=== PATIENT | female | born 1945 | race African-American/Black ===

== ENCOUNTER 2016-12-28 17:07 | Emergency (ER) | payer OTHER ==
[2016-12-28 17:22] VITALS: TEMP 98; BMI 31.2
--- NOTE | 2016-12-28 19:25 | PDOC ---
History of Present Illness - General History Source: Patient Exam Limitations: No Limitations - History of Present Illness Initial Comments: 12/28/16 21:44 The patient is a 70 year old female with a significant past medical history of FEM POP bypass surgery right leg one year ago, diabetes, hyperlipidemia, hypertension, and sleep apnea presenting to the Emergency Department with intermittent left knee pain. She reports that she stood up from a seated position last night when she felt a pain in her left knee. She reports that the pain is now intermittent, but that the pain is an 8/10 at its worst. She reports that she is participating in PT for her knees and lower back pain. She states that she ambulates well. She also reports nerve pain in her right leg secondary to the FEM POP bypass. The patient denies nausea, vomiting, and diarrhea. Patient denies fever, chills , and cough. Patient denies palpitations, chest pain, shortness of breath, and diaphoresis. Patient denies back pain, or neck pain. Surgical Hx: FEM POP bypass right leg one year ago <Jacque Bai - Last Filed: 12/28/16 21:44> <Dora Harper - Last Filed: 12/29/16 01:26> - General Chief Complaint: Pain, Acute Stated Complaint: L LEG PAIN Time Seen by Provider: 12/28/16 19:25 Past History <Jacque Bai - Last Filed: 12/28/16 21:44> - Past Medical History Cardiac Disorders: Yes (ANGINA) GI Disorders: Yes (gerd) Disorders: Yes (incontinence) HTN: Yes Hypercholesterolemia: Yes Thyroid Disease: (thyroid biopsies) Other medical history: rle dvt PVD - Surgical History Abdominal Surgery: Yes (tubal ligation, prolapse uterus sugery x2) - Immunization History Immunization Up to Date: Yes - Psycho/Social/Smoking Cessation Hx Anxiety: No Suicidal Ideation: No Smoking History: Former smoker Have you smoked in the past 12 months: No Information on smoking cessation initiated: No Hx Alcohol Use: No Drug/Substance Use Hx: No Substance Use Type: None <Dora Harper - Last Filed: 12/29/16 01:26> - Past Medical History Allergies/Adverse Reactions: Allergies Allergy/AdvReac Type Severity Reaction Status Date / Time Penicillins Allergy Unknown Verified 12/28/16 17:35 Home Medications: Ambulatory Orders Amlodipine Besylate [Norvasc -] 10 mg PO DAILY 02/01/14 Aspirin [ASA -] 81 mg PO DAILY 02/01/14 Metoprolol Succinate [Toprol XL -] 50 mg PO BID 02/01/14 Oxybutynin Chloride [Ditropan Xl] 10 mg PO DAILY 02/01/14 Atorvastatin Ca [Lipitor] 40 mg PO HS 07/03/15 Ranitidine [Zantac -] 150 mg PO BID 07/03/15 Review of Systems - Review of Systems Able to Perform ROS?: Yes Comments:: 12/28/16 21:45 GENERAL/CONSTITUTIONAL: No fever or chills. No weakness. HEAD, EYES, EARS, NOSE AND THROAT: No change in vision. No ear pain or discharge. No sore throat. CARDIOVASCULAR: No chest pain or shortness of breath. RESPIRATORY: No cough, wheezing, or hemoptysis. GASTROINTESTINAL: No nausea, vomiting, diarrhea or constipation. GENITOURINARY: No dysuria, frequency, or change in urination. MUSCULOSKELETAL: + left knee pain. No joint or muscle swelling or pain. No neck or back pain. SKIN: No rash NEUROLOGIC: No headache, vertigo, loss of consciousness, or change in strength/ sensation. ENDOCRINE: No increased thirst. No abnormal weight change. HEMATOLOGIC/LYMPHATIC: No anemia, easy bleeding, or history of blood clots. ALLERGIC/IMMUNOLOGIC: No hives or skin allergy. <Jacque Bai - Last Filed: 12/28/16 21:44> *Physical Exam - Vital Signs Last Vital Signs Temp Pulse Resp BP Pulse Ox 98 F 72 18 141/71 96 12/28/16 17:18 12/28/16 20:48 12/28/16 20:48 12/28/16 20:48 12/28/16 20:48 - Physical Exam Comments: 12/28/16 21:45 GENERAL: Awake, alert, and fully oriented, in no acute distress HEAD: No signs of trauma EYES: PERRLA, EOMI, sclera anicteric, conjunctiva clear ENT: Auricles normal inspection, hearing grossly normal, nares patent, oropharynx clear without exudates. Moist mucosa NECK: Normal ROM, supple, no lymphadenopathy, JVD, or masses LUNGS: Breath sounds equal, clear to auscultation bilaterally. No wheezes, and no crackles HEART: Regular rate and rhythm, normal S1 and S2, no murmurs, rubs or gallops ABDOMEN: Soft, nontender, normoactive bowel sounds. No guarding, no rebound. No masses EXTREMITIES: 1+ pitting edema bilaterally. Normal range of motion. No clubbing or cyanosis. No cords, erythema, or tenderness NEUROLOGICAL: Cranial nerves II through XII grossly intact. Normal speech, normal gait SKIN: Warm, Dry, normal turgor, no rashes or lesions noted. <Jacque Bai - Last Filed: 12/28/16 21:44> - Vital Signs Last Vital Signs Temp Pulse Resp BP Pulse Ox 98 F 66 20 129/68 97 12/28/16 17:18 12/28/16 17:18 12/28/16 17:18 12/28/16 17:18 12/28/16 17:18 <Dora Harper - Last Filed: 12/29/16 01:26> ED Treatment Course - RADIOLOGY Radiology Studies Ordered: 12/28/16 21:36 Left Leg US As read by Dr. Maximino Lane IMPRESSION: No evidence of deep venous thrombosis. <Jacque Bai - Last Filed: 12/28/16 21:44> Medical Decision Making - Medical Decision Making 12/29/16 01:24 Pt comes with left leg pain particularly in the popliteal area. She is worried that she may have a DVT; she has a hx of Fem-Pop bypass in the right leg. Pt has no DVT, on sono study today. The pain began earlier today when she stood up from a seated position. Pt is active and works out and goes to physical rehab. She states that she was biking 2 days ago on the stationary bikes. She likely strained her leg. D/c home with motrin tylenol as an outpatient. <Dora Harper - Last Filed: 12/29/16 01:26> *DC/Admit/Observation/Transfer - Attestations Scribe Attestion: 12/28/16 21:46 Documentation prepared by Jacque Bai, acting as medical writer for Dora Harper MD. <Jacque Bai - Last Filed: 12/28/16 21:44> - Discharge Dispostion Admit: No <Harper,Dora - Last Filed: 12/29/16 01:26> Diagnosis at time of Disposition: Leg pain, Left knee sprain - Discharge Dispostion Disposition: HOME Condition at time of disposition: Stable - Referrals Referrals: Cole Santiago MD [Primary Care Provider] - - Patient Instructions Printed Discharge Instructions: DI for Knee Sprain
[2016-12-28 20:49] VITALS: BP 141/71; PULSE 72
== END 2016-12-28 22:16 | disposition home or self-care (01) ==
LOC: JER 17:07 → JERFT 17:07 → JER 22:16
DX: S83.92XA Sprain of unspecified site of left knee, initial encounter (principal); X58.XXXA Exposure to other specified factors, initial encounter; Y93.9 Activity, unspecified; Y92.9 Unspecified place or not applicable; K21.9 Gastro-esophageal reflux disease without esophagitis; I10 Essential (primary) hypertension; E78.00 Pure hypercholesterolemia, unspecified; E07.9 Disorder of thyroid, unspecified; Z87.891 Personal history of nicotine dependence; I20.9 Angina pectoris, unspecified; M25.562 Pain in left knee; M79.89 Other specified soft tissue disorders; M79.605 Pain in left leg
CPT/HCPCS: 93971-TC; 99282-25

== ENCOUNTER 2017-03-06 12:44 | Observation (INO) | payer OTHER ==
[2017-03-06 12:50] VITALS: BMI 29.9
[2017-03-06] MEDS ORDERED: ASPIRIN 81 MG CHEWABLE TABLETS PO ONE ×2 (13:09→13:42)
[2017-03-06] MEDS ORDERED: ASPIRIN 81 MG CHEWABLE TABLETS ONE (13:32)
[2017-03-06] MEDS ORDERED: NAPROXEN 500 MG TABLET (FP) ONE (13:32)
[2017-03-06 13:42] LABS: BASOPHIL 0.8 % (0-2.0); EOSINOPHIL 4.2 % (0-4.5); MCH 29.2 pg (25.7-33.7); MCHC 32.4 g/dl (32.0-36.0); MEAN PLT VOLUME 10.2 fl (7.5-11.1); NEUTROPHILS 56.1 % (42.8-82.8); PLATELET COUNT 203 K/MM3 (134-434); RDW 13.2 % (11.6-15.6); WHITE BLOOD COUNT 9.6 K/mm3 (4.0-10.0)
[2017-03-06] MEDS ORDERED: NAPROXEN 500 MG TABLET (FP) PO ONE (13:42)
--- NOTE | 2017-03-06 13:49 | PDOC ---
History of Present Illness - General History Source: Patient Exam Limitations: No Limitations - History of Present Illness Initial Comments: 03/06/17 14:01 The patient is a 71-year-old woman with a significant past medical history of hypertension, hypercholesterolemia, fem-pop bypass, angina, gastroesophageal reflux disease and thyroid disease who presents to the emergency department via walk-in for further evaluation of left shoulder pain. No recent fall, trauma or strenuous activity. As per patient, she reports experiencing a mild muscle strain over her left arm, approximately 3 weeks. She states that since onset her pain, was initially intermittent but over the course if three weeks, her pain has gradually worsen. She describes her pain as a scraping pain that starts on her right arm and radiates to her chest and back with a rated 8/10 in severity that lasts for a few minutes. She notes that lateral movements mildly alleviates her pain. She has been taking Tylenol without significant relief. She presents to the emergency department, as she now feels nauseous. No fever, chills, generalized weakness No lightheadedness, dizziness, palpitations,visual changes, headache, neck pain No cough, shortness of breath, orthopnea. No abdominal pain, vomiting, diarrhea, No urinary complaints. Allergies: Penicillin Past Surgical History: Fem-pop bypass, tubal ligation, prolapse uterus sugery Social History: No tobacco, ETOH and recreational drug use. Primary Care Physician: Dr. Charo West Quarter Lining Smoother: Dr. Shalom Ayoub <Teresa Garcia - Last Filed: 03/06/17 14:35> <Vimal Magdaleno - Last Filed: 03/06/17 14:41> - General Chief Complaint: Chest Pain Stated Complaint: PAIN Time Seen by Provider: 03/06/17 12:59 Past History <Teresa Garcia - Last Filed: 03/06/17 14:35> - Past Medical History Cardiac Disorders: Yes (ANGINA) GI Disorders: Yes (gerd) Disorders: Yes (incontinence) HTN: Yes Hypercholesterolemia: Yes Thyroid Disease: (thyroid biopsies) - Surgical History Abdominal Surgery: Yes (tubal ligation, prolapse uterus sugery x2) - Immunization History Immunization Up to Date: Yes - Psycho/Social/Smoking Cessation Hx Anxiety: No Suicidal Ideation: No Smoking History: Never smoked Have you smoked in the past 12 months: No Information on smoking cessation initiated: No Hx Alcohol Use: No Drug/Substance Use Hx: No Substance Use Type: None <Vimal Magdaleno - Last Filed: 03/06/17 14:41> - Past Medical History Allergies/Adverse Reactions: Allergies Allergy/AdvReac Type Severity Reaction Status Date / Time Penicillins Allergy Unknown Verified 03/06/17 12:50 Home Medications: Ambulatory Orders Amlodipine Besylate [Norvasc -] 10 mg PO DAILY 02/01/14 Aspirin [ASA -] 81 mg PO DAILY 02/01/14 Metoprolol Succinate [Toprol XL -] 50 mg PO BID 02/01/14 Oxybutynin Chloride [Ditropan Xl] 10 mg PO DAILY 02/01/14 Atorvastatin Ca [Lipitor] 40 mg PO HS 07/03/15 Ranitidine [Zantac -] 150 mg PO BID 07/03/15 Metformin HCl [Metformin HCl ER] 1,000 mg PO BID 03/06/17 Pregabalin [Lyrica -] 75 mg PO BID 03/06/17 Review of Systems - Review of Systems Constitutional: No: Chills, Fever Respiratory: No: Cough, Shortness of Breath Cardiac (ROS): Yes: Chest Pain. No: Edema, Lightheadedness, Palpitations, Syncope ABD/GI: No: Nausea, Vomiting Musculoskeletal: Yes: Joint Pain, Muscle Pain Neurological: No: Tingling, Weakness All Other Systems: Reviewed and Negative <Vimal Magdaleno - Last Filed: 03/06/17 14:41> *Physical Exam - Vital Signs Last Vital Signs Temp Pulse Resp BP Pulse Ox 97.7 F 74 18 154/73 96 03/06/17 12:45 03/06/17 12:45 03/06/17 12:45 03/06/17 12:45 03/06/17 12:45 - Physical Exam Comments: 03/06/17 14:01 GENERAL: The patient is awake, alert, and fully oriented, in no acute distress. HEAD: Normal with no signs of trauma. EYES: Pupils equal, round and reactive to light, extraocular movements intact, sclera anicteric, conjunctiva clear with no pallor. ENT: Ears normal, nares patent, oropharynx clear without exudates. Moist mucous membranes. NECK: Normal range of motion, supple without lymphadenopathy, JVD, or masses. LUNGS: Breath sounds equal, clear to auscultation bilaterally. No wheeze/ crackles. HEART: Bradycardic, regular rate and rhythm without murmur or rub. ABDOMEN: Soft/nontender/nondistended. BS wnl. No guarding or rebound. No palpable masses. No hepatosplenomegaly. EXTREMITIES: No joint swelling warmth, joint effusion, deformity. There is some reproducible tenderness over the left trapezius muscle. Neurovascularly intact distally.Normal range of motion, no edema. No clubbing or cyanosis. No cords, erythema, or tenderness. NEUROLOGICAL: Cranial nerves II through XII grossly intact. Normal speech. PSYCH: Normal mood, normal affect. SKIN: Warm, Dry, normal turgor, no rashes or lesions noted. <Teresa Garcia - Last Filed: 03/06/17 14:35> - Vital Signs Last Vital Signs Temp Pulse Resp BP Pulse Ox 97.7 F 74 18 154/73 96 03/06/17 12:45 03/06/17 12:45 03/06/17 12:45 03/06/17 12:45 03/06/17 12:45 <Vimal Magdaleno - Last Filed: 03/06/17 14:41> Heart Score/ECG Review - History History: Slightly suspicious - Electrocardiogram EKG: Normal - Age Age: >/= 65 - Risk Factors Risk Factors Heart Score: Yes Hx Hypertension Based on the list above the patient has:: 1-2 risk factors - Troponin Troponin: </= normal limit - Score Heart Score - Total: 3 #1 ECG reviewed & interpreted by me at: 12:53 General ECG Interpretation: Sinus Rhythm, Normal Rate (67), Normal Intervals, No acute ischemic changes (Q waves in 3 and aVF, no acute ST changes) Compared to previous ECG there are: No significant change (c/w 01/11/16) <Vimal Magdaleno - Last Filed: 03/06/17 14:41> ED Treatment Course - LABORATORY CBC & Chemistry Diagram: 03/06/17 13:09 03/06/17 13:09 - ADDITIONAL ORDERS Additional order review: Laboratory Results 03/06/17 03/06/17 13:09 13:09 Sodium 140 Potassium 4.2 Chloride 101 Lipase 108 03/06/17 13:09 RBC 4.65 D MCV 90.0 MCHC 32.4 RDW 13.2 MPV 10.2 D Neutrophils % 56.1 Lymphocytes % 32.5 D Monocytes % 6.4 Eosinophils % 4.2 Basophils % 0.8 - RADIOLOGY Radiograph Interpretation: 03/06/17 14:04 EXAM: RAD/CHEST PA LAT IMPRESSION: Chest pain. Rule out infiltrate. Chest. 2 views. Comparison study November 27, 2016. No evidence of widening of the superior mediastinum. Uncoiled thoracic aorta. The cardiac silhouette is not enlarged. No evidence of pneumonia , CHF, pleural effusion, or pneumothorax. No bulky hilar adenopathy seen. Intact visualized osseous structures. Degenerative changes are noted in the thoracic spine, upper lumbosacral spine. - Medications Given in the ED: ED Medications Discontinued Medications Generic Name Dose Route Start Last Admin Trade Name Freq PRN Reason Stop Dose Admin Aspirin 162 mg 03/06/17 13:09 03/06/17 13:47 Asa - PO 03/06/17 13:10 Not Given ONCE ONE Aspirin 81 mg 03/06/17 13:42 03/06/17 13:47 Asa - PO 03/06/17 13:43 81 mg ONCE ONE Administration Naproxen 500 mg 03/06/17 13:42 03/06/17 13:47 Naprosyn - PO 03/06/17 13:43 500 mg ONCE ONE Administration <Teresa Garcia - Last Filed: 03/06/17 14:35> - LABORATORY CBC & Chemistry Diagram: 03/06/17 13:09 03/06/17 13:09 - RADIOLOGY Radiology Studies Ordered: Category Date Time Status CHEST PA & LAT [RAD] Stat Radiology 03/06/17 13:09 Ordered <Vimal Magdaleno - Last Filed: 03/06/17 14:41> Medical Decision Making - Medical Decision Making 03/06/17 14:[address] Brannon. 03/06/17 14:[address] West. Immediate response. Case was discussed. <Teresa Garcia - Last Filed: 03/06/17 14:35> - Medical Decision Making 03/06/17 13:51 A portion of this note was documented by scribe services under my direction. I have reviewed the details of the note, within reason, and agree with the documentation with the following case summary and management plan written by me. 71-year-old female with history of hypertension presents with 3 weeks of intermittent left arm pain, very positional in nature and relieved slightly with Tylenol, not exertional but over the last few days has radiated up to her shoulder and left upper chest, so she presents for evaluation. No cough or shortness of breath, no orthopnea, has unlimited exercise tolerance at baseline. Reports stress test in 1998, never had catheterization her stents. No respiratory complaints. Vital signs normal. Well-appearing. Cardiopulmonary exam is normal. Reproducible discomfort to the left shoulder/trapezius, neurovascular intact otherwise without joint pathology 71-year-old female with a presentation most consistent with musculoskeletal discomfort in the left arm, question arthralgia versus pinched nerve. Clearly, given the age and risk factors and radiation to left chest, ACS is on the differential. Atypical overall, heart score of 3, EKG without acute changes. 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 03/06/17 14:40 Labs are within normal limits, troponin negative. Chest x-ray without acute pathology. Still with some left arm pain, no chest pain. Case discussed with Dr. Iyer, covering Dr. Ayoub, who agrees that given the history of vascular disease Will place in observation for likely stress test. Patient agrees, accepted for observation telemetry by Dr. Masterson. <Vimal Magdaleno - Last Filed: 03/06/17 14:41> *DC/Admit/Observation/Transfer - Attestations Scribe Attestion: 03/06/17 14:02 Documentation prepared by Teresa Garcia, acting as medical secretary receptionist for Vimal Magdaleno MD. <Teresa Garcia - Last Filed: 03/06/17 14:35> - Discharge Dispostion Admit: Yes <Vimal Magdaleno - Last Filed: 03/06/17 14:41> Diagnosis at time of Disposition: Left arm pain, Atypical chest pain - Discharge Dispostion Condition at time of disposition: Stable - Referrals Referrals: Charo West MD [Primary Care Provider] -
[2017-03-06 14:02] LABS: ANION GAP 11 (8-16); BILIRUBIN,TOTAL 0.4 mg/dL (0.2-1.0); CALCIUM 9.5 mg/dL (8.5-10.1); CO2 28 mmol/L (21-32); COCKROFT - GAULT 92.2505; CREATININE 0.7 mg/dL (0.55-1.02); GLUCOSE,RANDOM 163 mg/dL (74-106); MAGNESIUM 2.2 mg/dL (1.8-2.4); SGOT/AST 14 U/L (15-37); SGPT/ALT 25 U/L (12-78); TOT PROT 8.1 g/dl (6.4-8.2)
[2017-03-06 14:04] LABS: ALK PHOS 113 U/L (45-117); TROPONIN I < 0.02 ng/ml (0.00-0.05)
[2017-03-06 14:25] LABS: INR 1.01 (0.82-1.09); PROTHROMBIN TIME (PATIENT) 11.1 SEC (9.98-11.88)
[2017-03-06 15:28] LABS: URINE APPEARANCE CLEAR; URINE BILIRUBIN NEGATIVE (NEGATIVE); URINE BLOOD NEGATIVE (NEGATIVE); URINE COLOR LTYELLOW; URINE GLUCOSE (UA) NEGATIVE (NEGATIVE); URINE KETONE NEGATIVE (NEGATIVE); URINE NITRITE NEGATIVE (NEGATIVE); URINE PROTEIN NEGATIVE (NEGATIVE); URINE UROBILINOGEN NEGATIVE E.U./dl (0.2-1.0)
[2017-03-06 15:36] LABS: URINE LEUK ESTERASE 2+ (NEGATIVE)
[2017-03-06 16:03] LABS: URINE MUCUS RARE; URINE WBC 4 /hpf (3-5)
[2017-03-06] MEDS: ACETAMINOPHEN 500 MG TABLET (FP) PO PRN (16:38)
[2017-03-06] MEDS: INSULIN SLIDING SCALE (NOVOLOG) 1 VIAL SQ SCH (17:36)
--- NOTE | 2017-03-06 18:57 | CON.CARD ---
Cardiology Consult (text) - Consultation Consultation Note: CC: CP 71 yo with h/o HTN, HPL, PAD, NIDDM who p/w left arm pain radiating to chest. states for the past few weeks has had increasing frequency of left arm pain/ numbness radiating to chest back and up left side of neck. does not seem to be worsened by exertion although patient overall sedentary. Pain is paroxysmal - comes and goes throughout day. Not worsened by position, movement or deep breathing. severe enough to interfere with sleep today also with associated nausea. no diaphoresis, vomiting, diarrhea, f/c/s, headache, rashes, visual disturbances, muscle weakness. func status: can walk up a flight of stairs without limitation. + chronic neuropathy pain in right ankle area. No rest sob, palps, dizzy, loc, pnd, orthopnea, le edema. pmhx: per hpi pshx: per hpi, additionally PAD interventions as mentioned below, Tubal Ligation social hx: former smoker fam hx: Mother (OK at 54, CVA at 56), ros: per hpi Ambulatory Orders Amlodipine Besylate [Norvasc -] 10 mg PO DAILY 02/01/14 Aspirin [ASA -] 81 mg PO DAILY 02/01/14 Metoprolol Succinate [Toprol XL -] 50 mg PO BID 02/01/14 Oxybutynin Chloride [Ditropan Xl] 10 mg PO DAILY 02/01/14 Atorvastatin Ca [Lipitor] 40 mg PO HS 07/03/15 Ranitidine [Zantac -] 150 mg PO BID 07/03/15 Metformin HCl [Metformin HCl ER] 1,000 mg PO BID 03/06/17 Pregabalin [Lyrica -] 75 mg PO BID 03/06/17 Current Medications Acetaminophen (Tylenol -) 1,000 mg PO Q6H PRN PRN Reason: FEVER OR PAIN Last Admin: 03/06/17 16:38 Dose: 1,000 mg Amlodipine Besylate (Norvasc -) 10 mg PO DAILY TONIE Aspirin (Asa -) 81 mg PO DAILY TONIE Atorvastatin Calcium (Lipitor -) 40 mg PO HS [facility] Insulin Aspart (Novolog Vial Sliding Scale -) 1 vial SQ TIDAC TONIE PRN Reason: Protocol Last Admin: 03/06/17 17:36 Dose: 2 units Metformin HCl (Glucophage Xr -) 1,000 mg PO BIDAC TONIE Last Admin: 03/06/17 17:35 Dose: 1,000 mg Metoprolol Succinate (Toprol Xl -) 50 mg PO BID [facility] Pregabalin (Lyrica -) 75 mg PO BID [facility] Ranitidine HCl (Zantac -) 150 mg PO BID [facility] Solifenacin (Vesicare -) 5 mg PO DAILY [facility] Vital Signs - 24 hr 03/06/17 03/06/17 03/06/17 12:45 13:09 14:09 Temperature 97.7 F Pulse Rate 74 Pulse Rate [ 68 66 Left Radial] Respiratory 18 20 20 Rate Blood Pressure 154/73 Blood Pressure 151/69 149/80 [Right Arm] O2 Sat by Pulse 96 100 100 Oximetry (%) 03/06/17 03/06/17 03/06/17 15:09 16:50 17:09 Temperature 98.7 F Pulse Rate 63 Pulse Rate [ 88 Left Radial] Respiratory 20 20 20 Rate Blood Pressure 122/65 Blood Pressure 151/70 [Right Arm] O2 Sat by Pulse 100 100 100 Oximetry (%) 03/06/17 18:43 Temperature 98 F Pulse Rate 63 Pulse Rate [ Left Radial] Respiratory 18 Rate Blood Pressure 134/71 Blood Pressure [Right Arm] O2 Sat by Pulse Oximetry (%) Intake & Output 03/04/17 03/05/17 03/06/17 03/07/17 07:59 07:59 07:59 07:59 Weight 180 lb NAD, calm JVD flat, neck supple bibasilar crackles, poor effort RRR nl s1, s2 no mrg. non-displaced pmi. no ttp of sternum + bs soft nt nd ext with trace edema bilaterally no cyanosis or clubbing of ext diminished dp/pt aaox3 no jaundice, diaphoresis. CBC, BMP 03/06/17 13:09 03/06/17 13:09 Laboratory Tests 03/06/17 03/06/17 13:09 13:09 Magnesium 2.2 Total Bilirubin 0.4 D AST 14 L D ALT 25 Alkaline Phosphatase 113 Creatine Kinase 61 Troponin I < 0.02 Albumin 4.0 D Lipase 108 EKG: possible septal q waves (new from priors), inf q waves similar to prior ekg 's, no acute ischemic changes. tele: sr pvc's CXR: wnl Echo 01/2017: normal LV/RV function, imp relaxation, no sig valv abn Isa Stress MPI 05/2015: no ischemia. carotid u/s: minimal athero, no stenosis, enlargement of rt thyroid. 71 yo with h/o HTN, HPL, PAD, NIDDM who p/w left arm pain radiating to chest. Chest pain - EKG with possible new septal q waves. trop neg x 1. would con't saad. recent echo last month without RWMA. - pain atypical, mainly radiating from left arm. Unclear if exertional. However, due to progressive nature of symptoms and RF's will further evaluate with exercise nuclear stress test in am. - currently pain free. continue anti-anginals - work up for non-cardiac etiologies per pmd. PAD - s/p thrombectomy of long segment right SFA occlusion 06/2015 and open revascularization of RLE 12/2015 (dr hayden) - con't asa, statin HTN - controlled on current regimen, con't HL - con't statin
[2017-03-06 19:26] LABS: TROPONIN I 0.02 ng/ml (0.00-0.05)
[2017-03-06] MEDS ORDERED: NITROGLYCERIN SUBLINGUAL 1/200 0.3 MG BTL SL PRN (19:51)
[2017-03-06] MEDS: traMADol HCL 50 MG TABLET PO PRN (20:08)
[2017-03-06] MEDS ORDERED: ATORVASTATIN CA 40 MG TABLET (FP) PO SCH (22:00)
[2017-03-06] MEDS: RANITIDINE HCL 150 MG TABLET (FP) PO SCH (22:07)
[2017-03-06] MEDS: PREGABALIN 75 MG CAPSULE PO SCH (22:07)
[2017-03-06] MEDS: METOPROLOL SUCCINATE 50 MG TAB.SR.24H (FP) PO SCH (22:07)
[2017-03-06] MEDS ORDERED: PT OWN MED DRAWER 7, Y5N ONE (23:11)
[2017-03-07] MEDS: ACETAMINOPHEN 500 MG TABLET (FP) PO PRN ×2 (00:36→06:33)
[2017-03-07 02:02] LABS: TROPONIN I < 0.02 ng/ml (0.00-0.05)
[2017-03-07] MEDS: traMADol HCL 50 MG TABLET PO PRN ×2 (02:31→09:33)
[2017-03-07] MEDS: INSULIN SLIDING SCALE (NOVOLOG) 1 VIAL SQ SCH ×3 (06:38→17:29)
[2017-03-07 08:38] LABS: CALCIUM 9.1 mg/dL (8.5-10.1); COCKROFT - GAULT 107.627; CREATININE 0.6 mg/dL (0.55-1.02); THYROID STIMULATING HORMONE 1.35 uIU/ml (0.358-3.74)
[2017-03-07] MEDS: PREGABALIN 75 MG CAPSULE PO SCH (09:33)
--- NOTE | 2017-03-07 09:56 | HP ---
Admitting History and Physical - Primary Care Physician PCP: Charo West - Admission Chief Complaint: chest pain History of Present Illness: patient in telemetry awaiting for stress test Complains of left arm pain, better after she received pain medication Denies any lifting heavy materials Denies any shortness of breath, dizziness or palpitations History Source: Patient Limitations to Obtaining History: No Limitations - Past Medical History Cardiovascular: Yes: HTN, Hyperlipdemia Endocrine: Yes: Diabetes Mellitus Additional Past Medical History: peripheral vascular disease <Cole Santiago - Last Filed: 03/07/17 18:14> - Primary Care Physician PCP: Charo West - Admission Chief Complaint: chest pain History of Present Illness: ER history - History of Present Illness Initial Comments: 03/06/17 14:01 The patient is a 71-year-old woman with a significant past medical history of hypertension, hypercholesterolemia, fem-pop bypass, angina, gastroesophageal reflux disease and thyroid disease who presents to the emergency department via walk-in for further evaluation of left shoulder pain. No recent fall, trauma or strenuous activity. As per patient, she reports experiencing a mild muscle strain over her left arm, approximately 3 weeks. She states that since onset her pain, was initially intermittent but over the course if three weeks, her pain has gradually worsen. She describes her pain as a scraping pain that starts on her right arm and radiates to her chest and back with a rated 8/10 in severity that lasts for a few minutes. She notes that lateral movements mildly alleviates her pain. She has been taking Tylenol without significant relief. She presents to the emergency department, as she now feels nauseous. No fever, chills, generalized weakness No lightheadedness, dizziness, palpitations,visual changes, headache, neck pain No cough, shortness of breath, orthopnea. No abdominal pain, vomiting, diarrhea, No urinary complaints. patient examined Awaiting stress test Complains of left arm pain, denies any heavy lifting or straining. Not alleviated with Tylenol. Tramadol helps with the pain. Denies any dizziness or palpitations Left arm pain radiates to the chest History Source: Patient Limitations to Obtaining History: No Limitations - Past Medical History Cardiovascular: Yes: HTN, Hyperlipdemia, Other (peripheral arterial disease) - Past Surgical History Past Surgical History: Yes: Tubal Ligation - Smoking History Smoking history: Never smoked Have you smoked in the past 12 months: No - Alcohol/Substance Use Hx Alcohol Use: No - Social History ADL: Independent <Charo West - Last Filed: 03/07/17 18:18> Home Medications <Cole Santiago - Last Filed: 03/07/17 18:14> <Charo West - Last Filed: 03/07/17 18:18> - Allergies Allergies/Adverse Reactions: Allergies Allergy/AdvReac Type Severity Reaction Status Date / Time Penicillins Allergy Unknown Verified 03/06/17 12:50 - Home Medications Home Medications: Ambulatory Orders Amlodipine Besylate [Norvasc -] 10 mg PO DAILY 02/01/14 Aspirin [ASA -] 81 mg PO DAILY 02/01/14 Metoprolol Succinate [Toprol XL -] 50 mg PO BID 02/01/14 Oxybutynin Chloride [Ditropan Xl] 10 mg PO DAILY 02/01/14 Atorvastatin Ca [Lipitor] 40 mg PO HS 07/03/15 Ranitidine [Zantac -] 150 mg PO BID 07/03/15 Metformin HCl [Metformin HCl ER] 1,000 mg PO BID 03/06/17 Pregabalin [Lyrica -] 75 mg PO BID 03/06/17 Acetaminophen [Tylenol .Extra-Strength -] 1,000 mg PO Q6H PRN #0 tablet Calcium 03/07/17 Enalapril Maleate [Vasotec -] 10 mg PO DAILY #30 tablet 03/07/17 Insulin Sliding Scale [Novolog Vial Sliding Scale -] 1 vial SQ TIDAC units Solifenacin Succinate [Vesicare -] 5 mg PO DAILY tab 03/07/17 Tramadol HCl [Ultram -] 50 mg PO Q6H PRN #30 tablet MDD 2 03/07/17 Family Disease History - Family Disease History Family Disease History: Heart Disease: Mother ([place] at 54, CVA at 56), Other: Father (amputations for unknown reason), Mother <Charo West - Last Filed: 03/07/17 18:18> Review of Systems - Review of Systems Constitutional: denies: Chills, Fever Cardiovascular: reports: Chest Pain. denies: Edema, Palpitations Respiratory: denies: Cough <Cole Santiago - Last Filed: 03/07/17 18:14> - Review of Systems Constitutional: denies: Chills, Fever Cardiovascular: reports: Chest Pain Respiratory: denies: Cough, SOB Musculoskeletal: reports: Extremity Pain (Left arm pain) <Charo West - Last Filed: 03/07/17 18:18> Physical Examination Vital Signs: Vital Signs Temperature 98.1 F 03/07/17 14:55 Pulse Rate 59 L 03/07/17 14:55 Respiratory Rate 16 03/07/17 14:55 Blood Pressure 114/60 03/07/17 14:55 O2 Sat by Pulse Oximetry (%) 98 03/07/17 10:00 Constitutional: Yes: No Distress, Calm Cardiovascular: Yes: Regular Rate and Rhythm Respiratory: Yes: CTA Bilaterally Gastrointestinal: Yes: Normal Bowel Sounds, Soft, Abdomen, Obese. No: Distention, Tenderness Edema: No Psychiatric: Yes: Alert, Oriented Labs: CBC, BMP 03/07/17 06:00 <Cole Santiago - Last Filed: 03/07/17 18:14> Vital Signs: Vital Signs Temperature 97.3 F L 03/07/17 06:00 Pulse Rate 56 L 03/07/17 06:00 Respiratory Rate 20 03/07/17 06:00 Blood Pressure 121/68 03/07/17 06:00 O2 Sat by Pulse Oximetry (%) 98 03/06/17 22:00 Constitutional: Yes: No Distress, Calm Cardiovascular: Yes: Regular Rate and Rhythm Respiratory: Yes: CTA Bilaterally Gastrointestinal: Yes: Normal Bowel Sounds, Soft, Abdomen, Obese. No: Distention, Tenderness Edema: No Labs: CBC, BMP 03/07/17 06:00 <Charo West - Last Filed: 03/07/17 18:18> Imaging - Results Chest X-ray: Image Reviewed EKG: Image Reviewed <Cole Santiago - Last Filed: 03/07/17 18:14> - Results Chest X-ray: Image Reviewed EKG: Image Reviewed <Charo West - Last Filed: 03/07/17 18:18> Problem List - Problems (1) Atypical chest pain Code(s): R07.89 - OTHER CHEST PAIN (2) Left arm pain Code(s): M79.602 - PAIN IN LEFT ARM (3) CAD (coronary artery disease) Code(s): I25.10 - ATHSCL HEART DISEASE OF [place] CORONARY ARTERY W/O ANG PCTRS Qualifiers: Coronary Disease-Associated Artery/Lesion type: [place] coronary artery [place] vs. transplanted heart: [place] heart Associated angina: without angina pectoris (4) CAD (coronary artery disease), [place] coronary artery Code(s): I25.10 - ATHSCL HEART DISEASE OF [place] CORONARY ARTERY W/O ANG PCTRS (5) HTN (hypertension) Code(s): I10 - ESSENTIAL (PRIMARY) HYPERTENSION Qualifiers: Hypertension type: essential hypertension Qualified Code(s): I10 - Essential (primary) hypertension <Cole Santiago - Last Filed: 03/07/17 18:14> - Problems (1) Atypical chest pain Code(s): R07.89 - OTHER CHEST PAIN (2) Left arm pain Code(s): M79.602 - PAIN IN LEFT ARM (3) CAD (coronary artery disease) Code(s): I25.10 - ATHSCL HEART DISEASE OF [place] CORONARY ARTERY W/O ANG PCTRS Qualifiers: Coronary Disease-Associated Artery/Lesion type: [place] coronary artery [place] vs. transplanted heart: [place] heart Associated angina: without angina pectoris (4) CAD (coronary artery disease), [place] coronary artery Code(s): I25.10 - ATHSCL HEART DISEASE OF [place] CORONARY ARTERY W/O ANG PCTRS (5) Chest pain Code(s): R07.9 - CHEST PAIN, UNSPECIFIED (6) HTN (hypertension) Code(s): I10 - ESSENTIAL (PRIMARY) HYPERTENSION Qualifiers: Hypertension type: essential hypertension Qualified Code(s): I10 - Essential (primary) hypertension <Charo West - Last Filed: 03/07/17 18:18> Assessment/Plan plan Cardiology evaluation noted Cardiac enzymes are negative Continue with medications Tramadol as needed for pain as she complains more of arm pain rather than chest pain Stress test scheduled for today telemetry monitoring <Cole Santiago - Last Filed: 03/07/17 18:14> plan Cardiology evaluation noted Cardiac enzymes are negative telemetry unremarkable so far Stress test scheduled today Continue with medications Tramadol for pain relief Patient has history of DJD and disc bulging in the neck from previous MRI done in 2011, possibly may be the cause of left arm pain but will need to rule out cardiac causes first <Charo West - Last Filed: 03/07/17 18:18>
[2017-03-07] MEDS ORDERED: ASPIRIN 81 MG CHEWABLE TABLETS PO SCH (10:00)
[2017-03-07] MEDS ORDERED: SOLIFENACIN SUCCINATE 5 MG TAB (FP) PO SCH (10:00)
[2017-03-07] MEDS ORDERED: amLODIPine BESYLATE 10 MG TABLET (FP) PO SCH (10:00)
[2017-03-07] MEDS ORDERED: DIPYRIDAMOLE STRESS TEST 46.6 MG in DEXTROSE 5%-WATER - 37.28 ML IVPB ONE (10:30)
[2017-03-07] MEDS: RANITIDINE HCL 150 MG TABLET (FP) PO SCH (12:35)
[2017-03-07] MEDS: METOPROLOL SUCCINATE 50 MG TAB.SR.24H (FP) PO SCH (12:36)
--- NOTE | 2017-03-07 12:59 | EKG ---
Test Reason : Blood Pressure : / mmHG Vent. Rate : 067 BPM Atrial Rate : 067 BPM P-R Int : 186 ms QRS Dur : 090 ms QT Int : 400 ms P-R-T Axes : 055 -08 020 degrees QTc Int : 422 ms NORMAL SINUS RHYTHM POOR R WAVE PROGRESSION CANNOT RULE OUT INFERIOR INFARCT ABNORMAL ECG WHEN COMPARED WITH ECG OF 11-JAN-2016 00:55, NO SIGNIFICANT CHANGE WAS FOUND Confirmed by JOHN DUFFY MD ([id number]) on 03/07/2017 12:59:00 PM Referred By: Confirmed By:JOHN DUFFY MD
--- NOTE | 2017-03-07 14:28 | PN ---
Progress Note (short form) - Note Progress Note: s: no further cp. no sob palps dizzy. has left arm/hand/shoulder pain. o: Vital Signs Period Temp Pulse Resp BP Sys/Gaffney Pulse Ox Last 24 Hr 97.3 F-98.7 F 54-88 18-20 117-151/65-98 98-100 NAD, calm JVD flat, neck supple cta bl nl eff RRR nl s1, s2 no mrg. + bs soft nt nd ext with trace edema bilaterally no cyanosis or clubbing of ext aaox3 no jaundice, diaphoresis Current Medications Generic Name Dose Route Start Last Admin Trade Name Freq PRN Reason Stop Dose Admin Acetaminophen 1,000 mg 03/06/17 16:20 03/07/17 06:33 Tylenol - PO 1,000 mg Q6H PRN Administration FEVER OR PAIN Amlodipine Besylate 10 mg 03/07/17 10:00 03/07/17 12:35 Norvasc - PO 10 mg DAILY TONIE Administration Aspirin 81 mg 03/07/17 10:00 03/07/17 12:35 Asa - PO 81 mg DAILY TONIE Administration Atorvastatin Calcium 40 mg 03/06/17 22:00 03/06/17 22:07 Lipitor - PO 40 mg HS TONIE Administration Insulin Aspart 1 vial 03/06/17 16:30 03/07/17 12:38 Novolog Vial Sliding Scale - SQ 4 units TIDAC TONIE Administration Protocol Metformin HCl 1,000 mg 03/06/17 16:30 03/07/17 06:37 Glucophage Xr - PO Not Given BIDAC TONIE Metoprolol Succinate 50 mg 03/06/17 22:00 03/07/17 12:36 Toprol Xl - PO 50 mg BID TONIE Administration Nitroglycerin 0.3 mg 03/06/17 19:51 Nitrostat - SL Q5M PRN FOR CHEST PAIN Pregabalin 75 mg 03/06/17 22:00 03/07/17 09:33 Lyrica - PO 75 mg BID TNOIE Administration Ranitidine HCl 150 mg 03/06/17 22:00 03/07/17 12:35 Zantac - PO 150 mg BID TONIE Administration Solifenacin 5 mg 03/07/17 10:00 03/07/17 12:36 Vesicare - PO 5 mg DAILY TONIE Administration Tramadol HCl 50 mg 03/06/17 19:48 03/07/17 09:33 Ultram - PO 50 mg Q6H PRN Administration PAIN CBC, BMP 03/06/17 13:09 03/07/17 06:00 tele: sr CXR: wnl Echo 01/2017: normal LV/RV function, imp relaxation, no sig valv abn Isa Stress MPI 05/2015: no ischemia. Isa Stress MPI 02/2017: nl mpi, no ischemia, nl lvef carotid u/s: minimal athero, no stenosis, enlargement of rt thyroid. a/p: 71 yo with h/o HTN, HPL, PAD, NIDDM who p/w left arm pain radiating to chest. Chest pain -atypical cp -ce's neg x3, no signs acs -recent echo unremarkable -MIBI is normal and pt also had normal mibi 05/2015 -does not seem to be cardiac etiology of her symptoms -work up for non-cardiac etiologies per pmd. PAD - s/p thrombectomy of long segment right SFA occlusion 06/2015 and open revascularization of RLE 12/2015 (dr hayden) - con't asa, statin HTN - controlled on current regimen, con't HL - con't statin cardiac patel stable for dc
[2017-03-07 15:43] VITALS: BP 114/60; PULSE 59; TEMP 98.1
--- NOTE | 2017-03-07 16:42 | DS ---
Physical Examination Vital Signs: Vital Signs Temperature 98.1 F 03/07/17 14:55 Pulse Rate 59 L 03/07/17 14:55 Respiratory Rate 16 03/07/17 14:55 Blood Pressure 114/60 03/07/17 14:55 O2 Sat by Pulse Oximetry (%) 98 03/07/17 10:00 Findings/Remarks: see h/p Labs: CBC, BMP 03/07/17 06:00 Discharge Summary Reason For Visit: ATYPICAL CHEST PAIN Current Active Problems Atypical chest pain (Acute) Left arm pain (Acute) Hospital Course: admitted for cp mi ruled out pt seen by cardiology now feels better noted to be bradycardic-- 40s decrease toprol xl - daily add enalapril discussed with pt f/u in office next week with Dr. West . pt in agreement Condition: Stable - Instructions Referrals: Charo West MD [Primary Care Provider] - Disposition: HOME - Home Medications Comprehensive Discharge Medication List: Ambulatory Orders Amlodipine Besylate [Norvasc -] 10 mg PO DAILY 02/01/14 Aspirin [ASA -] 81 mg PO DAILY 02/01/14 Metoprolol Succinate [Toprol XL -] 50 mg PO BID 02/01/14 -- changed to daily Oxybutynin Chloride [Ditropan Xl] 10 mg PO DAILY 02/01/14 Atorvastatin Ca [Lipitor] 40 mg PO HS 07/03/15 Ranitidine [Zantac -] 150 mg PO BID 07/03/15 Metformin HCl [Metformin HCl ER] 1,000 mg PO BID 03/06/17 Pregabalin [Lyrica -] 75 mg PO BID 03/06/17 Acetaminophen [Tylenol .Extra-Strength -] 1,000 mg PO Q6H PRN #0 tablet Calcium 03/07/17 Enalapril Maleate [Vasotec -] 10 mg PO DAILY #30 tablet 03/07/17 Insulin Sliding Scale [Novolog Vial Sliding Scale -] 1 vial SQ TIDAC units Solifenacin Succinate [Vesicare -] 5 mg PO DAILY tab 03/07/17 Tramadol HCl [Ultram -] 50 mg PO Q6H PRN #30 tablet MDD 2 03/07/17
== END 2017-03-07 18:25 | disposition home or self-care (01) ==
LOC: JER 12:44 → JERBED 14:42 → J4S 15:45
PROVIDERS: ADMIT Internal Medicine; ATTEND Internal Medicine
PROC: 3E033GC Introduction of Other Therapeutic Substance into Peripheral Vein, Percutaneous Approach (ICD-10-PCS; principal; 2017-03-06)
PROC: 3E013VG Introduction of Insulin into Subcutaneous Tissue, Percutaneous Approach (ICD-10-PCS; 2017-03-06)
DX: R07.89 Other chest pain (principal); I25.10 Atherosclerotic heart disease of native coronary artery without angina pectoris; I10 Essential (primary) hypertension; M79.602 Pain in left arm; E78.5 Hyperlipidemia, unspecified; K21.9 Gastro-esophageal reflux disease without esophagitis; E07.9 Disorder of thyroid, unspecified; E11.9 Type 2 diabetes mellitus without complications; Z79.4 Long term (current) use of insulin
CPT/HCPCS: 36415; 71020-TC; 78452-TC; 80048; 80053; 81003; 81015; 82550; 83690; 83735; 84443; 84484; 85025; 85610; 93005; 93010; 93017; 99285-25; A9502; G0378; J1245

== ENCOUNTER 2017-04-30 18:10 | Emergency (ER) | payer OTHER ==
--- NOTE | 2017-04-30 18:27 | PDOC ---
History of Present Illness - History of Present Illness Initial Comments: 04/30/17 19:16 The patient is a 71 year old female, with a significant past medical history of hypertension, hypercholesterolemia, fem-pop bypass, angina, GERD, and diabetes, who presents to the emergency department via ems with posterior head pain s/p falling off of a stool at a restaurant today. The patient reports she was attempting to reach the stool nearest to her with her foot when she slid off her seat. She reports hitting the back of her head on the ground, but denies loss of consciousness. She reports a mild headache and generalized weakness at this time. She also reports some right posterior ankle/calf pain s/p fall which she describes as a betty horse. She states the pain to her posterior ankle has since subsided, but reports it is still present at this time. She reports taking her metformin with a banana this morning. She denies chest pain, shortness of breath, and dizziness. She denies fever, chills, nausea, vomit, diarrhea and constipation. She denies dysuria, frequency , urgency and hematuria. Allergies: penicillin PCP - Dr. Charo West <Alejandra Cardenas - Last Filed: 04/30/17 19:45> <Lindsey Watkins - Last Filed: 04/30/17 21:00> - General Chief Complaint: Injury Stated Complaint: FALL Past History <Alejandra Cardenas - Last Filed: 04/30/17 19:45> - Past Medical History Cardiac Disorders: Yes (ANGINA) GI Disorders: Yes (gerd) Disorders: Yes (incontinence) HTN: Yes Hypercholesterolemia: Yes Thyroid Disease: (thyroid biopsies) - Surgical History Abdominal Surgery: Yes (tubal ligation, prolapse uterus sugery x2) Cardiac Surgery: Yes (femoral popli.bipass) - Immunization History Immunization Up to Date: Yes - Psycho/Social/Smoking Cessation Hx Anxiety: No Suicidal Ideation: No Smoking History: Never smoked Have you smoked in the past 12 months: No Hx Alcohol Use: No Drug/Substance Use Hx: No Substance Use Type: None <Lindsey Watkins - Last Filed: 04/30/17 21:00> - Past Medical History Allergies/Adverse Reactions: Allergies Allergy/AdvReac Type Severity Reaction Status Date / Time Penicillins Allergy Unknown Verified 04/30/17 18:45 Home Medications: Ambulatory Orders Amlodipine Besylate [Norvasc -] 10 mg PO DAILY 02/01/14 Aspirin [ASA -] 81 mg PO DAILY 02/01/14 Metoprolol Succinate [Toprol XL -] 50 mg PO BID 02/01/14 Oxybutynin Chloride [Ditropan Xl] 10 mg PO DAILY 02/01/14 Atorvastatin Ca [Lipitor] 40 mg PO HS 07/03/15 Ranitidine [Zantac -] 150 mg PO BID 07/03/15 Metformin HCl [Metformin HCl ER] 1,000 mg PO BID 03/06/17 Pregabalin [Lyrica -] 75 mg PO BID 03/06/17 Acetaminophen [Tylenol .Extra-Strength -] 1,000 mg PO Q6H PRN #0 tablet Enalapril Maleate [Vasotec -] 10 mg PO DAILY #30 tablet 03/07/17 Insulin Sliding Scale [Novolog Vial Sliding Scale -] 1 vial SQ TIDAC units Solifenacin Succinate [Vesicare -] 5 mg PO DAILY tab 03/07/17 Tramadol HCl [Ultram -] 50 mg PO Q6H PRN #30 tablet MDD 2 03/07/17 Review of Systems - Review of Systems Able to Perform ROS?: Yes Comments:: 04/30/17 19:16 CONSTITUTIONAL: Absent: fever, chills, diaphoresis, generalized weakness, malaise, loss of appetite HEENT: Absent: rhinorrhea, nasal congestion, throat pain, throat swelling, difficulty swallowing, mouth swelling, ear pain, eye pain, visual Changes CARDIOVASCULAR: Absent: chest pain, syncope, palpitations, irregular heart rate, lightheadedness , peripheral edema RESPIRATORY: Absent: cough, shortness of breath, dyspnea with exertion, orthopnea, wheezing, stridor, hemoptysis GASTROINTESTINAL: Absent: abdominal pain, abdominal distension, nausea, vomiting, diarrhea, constipation, melena, hematochezia GENITOURINARY: Absent: dysuria, frequency, urgency, hesitancy, hematuria, flank pain, genital pain MUSCULOSKELETAL: (+) right posterior calf/ankle pain with minimal swelling to her right foot. Absent: arthralgia, joint swelling SKIN: Absent: rash, itching, pallor HEMATOLOGIC/IMMUNOLOGIC: Absent: easy bleeding, easy bruising, lymphadenopathy, frequent infections ENDOCRINE: Absent: unexplained weight gain, unexplained weight loss, heat intolerance, cold intolerance NEUROLOGIC: (+) headache, Absent: focal weakness or paresthesias, dizziness, unsteady gait, seizure, mental status changes, bladder or bowel incontinence PSYCHIATRIC: Absent: anxiety, depression, suicidal or homicidal ideation, hallucinations. <Alejandra Cardenas - Last Filed: 04/30/17 19:45> *Physical Exam - Vital Signs Last Vital Signs Temp Pulse Resp BP Pulse Ox 98.0 F 70 13 138/79 100 04/30/17 18:10 04/30/17 18:10 04/30/17 18:10 04/30/17 18:10 04/30/17 18:10 - Physical Exam Comments: 04/30/17 19:17 GENERAL: Well developed, well nourished. Awake and alert. No acute distress. HEENT: Normocephalic, atraumatic. PERRLA, EOMI. No conjunctival pallor. Sclera are non- icteric. Moist mucous membranes. Oropharynx is clear. NECK: Supple. Full ROM. No JVD. Carotid pulses 2+ and symmetric, without bruits. No thyromegaly. No lymphadenopathy. CARDIOVASCULAR: Regular rate and rhythm. No murmurs, rubs, or gallops. Distal pulses are 2+ and symmetric. PULMONARY: No evidence of respiratory distress. Lungs clear to auscultation bilaterally. No wheezing, rales or rhonchi. ABDOMINAL: Soft. Non-tender. Non-distended. No rebound or guarding. No organomegaly. Normoactive bowel sounds. MUSCULOSKELETAL Normal range of motion at all joints. No bony deformities or tenderness. No CVA tenderness. EXTREMITIES: (+) trace pedal edema. No cyanosis. No clubbing.No calf tenderness. SKIN: Warm and dry. Normal capillary refill. No rashes. No jaundice. NEUROLOGICAL: Alert, awake, appropriate. Cranial nerves 2-12 intact. Normoreflexic in the upper and lower extremities. Normal speech. Toes are down-going bilaterally. Gait is normal without ataxia. PSYCHIATRIC: Cooperative. Good eye contact. Appropriate mood and affect. <Alejandra Cardenas - Last Filed: 04/30/17 19:45> ED Treatment Course - LABORATORY CBC & Chemistry Diagram: 04/30/17 19:10 04/30/17 19:10 - ADDITIONAL ORDERS Additional order review: Laboratory Results 04/30/17 18:43 POC Glucometer [id number] 04/30/17 18:43 POC Glucometer [id number] <Alejandra Cardenas - Last Filed: 04/30/17 19:45> - LABORATORY CBC & Chemistry Diagram: 04/30/17 19:10 04/30/17 19:10 <Lindsey Watkins - Last Filed: 04/30/17 21:00> Medical Decision Making - Medical Decision Making 04/30/17 20:53 71-year-old female brought in by ambulance from the restaurant called to [facility] where she slipped off her chair attempting to pull a stool close to her. She is not on any anticoagulation. She denies any loss of consciousness. She is a ajz-kujigpl-lqzwnslgb diabetic and takes metformin. Prior to arrival the only food she had was one banana. She never got to eat the hamburger she ordered. Primary medical doctors Charo Ayers Past medical history [id number] diabetes, coronary artery disease, hypertension, peripheral vascular disease, status post femoropopliteal. Surgical history also includes tubal ligation, she had repair of her left jugular vein. Patient was very hungry upon arrival and ate dinner here. She's been ambulatory and walked to the bathroom to give urine. EKG is normal sinus rhythm and unchanged since her previous EKG done March 06 She denied chest pain, abdominal pain, shortness of breath, fever, chills, nausea, vomiting or diarrhea Pressure. Mechanical fall <Lnidsey Watkins - Last Filed: 04/30/17 21:00> *DC/Admit/Observation/Transfer - Attestations Scribe Attestion: 04/30/17 19:18 Documentation prepared by Alejandra Cardenas, acting as biomedical manager for Lindsey Watkins MD <Alejandra Cardenas - Last Filed: 04/30/17 19:45> <Lindsey Watkins - Last Filed: 04/30/17 21:00> Diagnosis at time of Disposition: Accident due to mechanical fall without injury Qualifiers: Encounter type: initial encounter Qualified Code(s): W19.XXXA - Unspecified fall, initial encounter Diabetes mellitus Qualifiers: Diabetes mellitus type: type 2 Diabetes mellitus complication status: with hyperglycemia Diabetes mellitus senior living insulin use: without intermodal dispatcher use Qualified Code(s): E11.65 - Type 2 diabetes mellitus with hyperglycemia - Discharge Dispostion Disposition: HOME Condition at time of disposition: Stable - Referrals Referrals: Charo West MD [Primary Care Provider] - - Patient Instructions Printed Discharge Instructions: How to Prevent Falls Additional Instructions: Please return if you experience any headaches,extremity pain
[2017-04-30 18:45] VITALS: BP 138/79; PULSE 70; TEMP 98; BMI 29.9
[2017-04-30 19:28] LABS: BASOPHIL 0.7 % (0-2.0); EOSINOPHIL 5.5 % (0-4.5); MCH 29.4 pg (25.7-33.7); MCHC 32.4 g/dl (32.0-36.0); MEAN CELL VOLUME 90.7 fl (80-96); MEAN PLT VOLUME 9.3 fl (7.5-11.1); NEUTROPHILS 59.3 % (42.8-82.8); PLATELET COUNT 218 K/MM3 (134-434); RDW 13.4 % (11.6-15.6); WHITE BLOOD COUNT 9.2 K/mm3 (4.0-10.0)
[2017-04-30 19:51] LABS: URINE APPEARANCE CLEAR; URINE BILIRUBIN NEGATIVE (NEGATIVE); URINE BLOOD NEGATIVE (NEGATIVE); URINE COLOR STRAW; URINE GLUCOSE (UA) NEGATIVE (NEGATIVE); URINE KETONE NEGATIVE (NEGATIVE); URINE NITRITE NEGATIVE (NEGATIVE); URINE PROTEIN NEGATIVE (NEGATIVE); URINE UROBILINOGEN NEGATIVE E.U./dl (0.2-1.0)
[2017-04-30 20:03] LABS: ALBUMIN 4.1 g/dl (3.4-5.0); ALK PHOS 99 U/L (45-117); ANION GAP 6 (8-16); BILIRUBIN,TOTAL 0.4 mg/dL (0.2-1.0); CALCIUM 9.5 mg/dL (8.5-10.1); CO2 30 mmol/L (21-32); CREATININE 0.8 mg/dL (0.55-1.02); GLUCOSE,RANDOM 152 mg/dL (74-106); SGOT/AST 15 U/L (15-37); SGPT/ALT 23 U/L (12-78); TOT PROT 7.8 g/dl (6.4-8.2)
[2017-04-30 20:05] LABS: URINE LEUK ESTERASE 1+ (NEGATIVE)
[2017-04-30 20:15] LABS: URINE MUCUS RARE; URINE RBC <1 /hpf (0-3); URINE WBC 7 /hpf (3-5)
--- NOTE | 2017-05-01 13:38 | EKG ---
Test Reason : Blood Pressure : / mmHG Vent. Rate : 072 BPM Atrial Rate : 072 BPM P-R Int : 182 ms QRS Dur : 078 ms QT Int : 402 ms P-R-T Axes : 043 006 006 degrees QTc Int : 440 ms POOR DATA QUALITY, INTERPRETATION MAY BE ADVERSELY AFFECTED NORMAL SINUS RHYTHM POSSIBLE LEFT ATRIAL ENLARGEMENT ANTERIOR INFARCT (CITED ON OR BEFORE 06-MAR-2017) ABNORMAL ECG WHEN COMPARED WITH ECG OF 06-MAR-2017 12:53, NO SIGNIFICANT CHANGE WAS FOUND Confirmed by MICHELET SLOAN MD ([id number]) on 05/01/2017 1:38:46 PM Referred By: Confirmed By:MICHELET SLOAN MD
== END 2017-04-30 21:18 | disposition home or self-care (01) ==
LOC: JER 18:10
DX: E11.65 Type 2 diabetes mellitus with hyperglycemia (principal); W19.XXXA Unspecified fall, initial encounter; W07.XXXA Fall from chair, initial encounter; Y92.9 Unspecified place or not applicable; Y99.9 Unspecified external cause status; I10 Essential (primary) hypertension; I20.9 Angina pectoris, unspecified; K21.9 Gastro-esophageal reflux disease without esophagitis; E78.00 Pure hypercholesterolemia, unspecified; R32 Unspecified urinary incontinence; E07.9 Disorder of thyroid, unspecified
CPT/HCPCS: 36415; 80053; 81003; 81015; 85025; 93005; 93010; 99281-25

== ENCOUNTER 2021-09-15 15:46 | Emergency (ER) | payer OTHER ==
[2021-09-15 15:59] VITALS: TEMP 98; BMI 34.0
[2021-09-15] MEDS ORDERED: ACETAMINOPHEN 325 MG TABLET (FP) PO ONE (17:30)
[2021-09-15] MEDS ORDERED: ACETAMINOPHEN 325 MG TABLET (FP) ONE (17:51)
[2021-09-15 18:01] LABS: BASO % 0.3 % (0-2.0); EOS % 6.1 % (0-4.5); HEMATOCRIT 36.9 % (32.4-45.2); HEMOGLOBIN 12.3 GM/dL (10.7-15.3); LYMPH % 25.9 % (8-40); MCH 29.8 pg (25.7-33.7); MCHC 33.2 g/dl (32.0-36.0); MEAN CELL VOLUME 89.8 fl (80-96); MEAN PLT VOLUME 9.1 fl (7.5-11.1); MONO % 6.1 % (3.8-10.2); NEUT % 61.6 % (42.8-82.8); PLATELET COUNT 209 10^3/uL (134-434); RBC 4.11 M/mm3 (3.60-5.2); RDW 13.1 % (11.6-15.6); WHITE BLOOD COUNT 10.4 K/mm3 (4.0-10.0)
[2021-09-15 18:29] LABS: CHLORIDE 106 mmol/L (98-107); SODIUM 141 mmol/L (136-145)
[2021-09-15 18:31] LABS: CALCIUM 9.2 mg/dL (8.5-10.1)
[2021-09-15 18:32] LABS: ALBUMIN 3.6 g/dl (3.4-5.0); ANION GAP 6 MMOL/L (8-16); BLOOD UREA NITROGEN 13.9 mg/dL (7-18); CO2 30 mmol/L (21-32); GLUCOSE,RANDOM 110 mg/dL (74-106)
[2021-09-15 18:35] LABS: CREATININE 0.9 mg/dL (0.55-1.3); PHOSPHOROUS 3.3 mg/dL (2.5-4.9); SGOT/AST 18 U/L (15-37); SGPT/ALT 20 U/L (13-61)
[2021-09-15 18:36] LABS: BILIRUBIN,TOTAL 0.4 mg/dL (0.2-1)
[2021-09-15 18:37] LABS: TOT PROT 7.6 g/dl (6.4-8.2)
[2021-09-15 18:39] LABS: ALK PHOS 99 U/L (45-117)
[2021-09-15] MEDS ORDERED: KETOROLAC TROMETHAMINE 15 MG/ML VIAL IVPUSH ONE (18:41)
[2021-09-15 18:42] LABS: MAGNESIUM 2.1 mg/dL (1.8-2.4)
[2021-09-15] MEDS ORDERED: KETOROLAC TROMETHAMINE 15 MG/ML VIAL ONE (18:59)
[2021-09-15 19:05] VITALS: BP 128/70; PULSE 70
== END 2021-09-15 19:10 | disposition home or self-care (01) ==
LOC: JER 15:46
PROC: 3E0333Z Introduction of Anti-inflammatory into Peripheral Vein, Percutaneous Approach (ICD-10-PCS; principal; 2021-09-15)
DX: M79.601 Pain in right arm (principal); R53.83 Other fatigue
CPT/HCPCS: 36415; 71045-TC-FY; 73030-TC-RT-FY; 80053; 82550; 83735; 84100; 84484; 85025; 93005; 93010; 99285-25

== ENCOUNTER 2022-05-03 18:13 | Emergency (ER) | payer OTHER ==
[2022-05-03 18:21] VITALS: BP 122/71; PULSE 65; TEMP 98.2; BMI 27.9
[2022-05-03] MEDS ORDERED: ACETAMINOPHEN 1000 MG/100 ML BAG IVPB ONE (19:59)
[2022-05-03] MEDS ORDERED: ACETAMINOPHEN INJECTION 100 ML IVPB ONE (20:10)
[2022-05-03 20:52] LABS: INR 1.33 (0.83-1.09); PROTHROMBIN TIME (PATIENT) 15.3 SEC (9.7-13.0)
[2022-05-03 20:54] LABS: ACTIVATED PTT 31.1 SECONDS (25.2-36.5)
[2022-05-04 00:27] LABS: EPI CELLS 20 /uL (0-25.1); HYALINE CASTS 0 /uL (0-3.1); PH,URINE 5.5 (5.0-8.0); URINE APPEARANCE CLEAR; URINE BACTERIA 296 /uL (0-1359); URINE BILIRUBIN NEGATIVE (NEGATIVE); URINE COLOR YELLOW; URINE GLUCOSE (UA) NEGATIVE (NEGATIVE); URINE KETONE NEGATIVE (NEGATIVE); URINE LEUK ESTERASE 1+ (NEGATIVE); URINE NITRITE NEGATIVE (NEGATIVE); URINE PROTEIN NEGATIVE (NEGATIVE); URINE RBC 1 /uL (0-23.9); URINE UROBILINOGEN 0.2 mg/dL (0.2-1.0); URINE WBC 84 /uL (0-25.8)
== END 2022-05-04 02:48 | disposition home or self-care (01) ==
LOC: JER 18:13
PROC: 3E033GC Introduction of Other Therapeutic Substance into Peripheral Vein, Percutaneous Approach (ICD-10-PCS; principal; 2022-05-03)
DX: N39.0 Urinary tract infection, site not specified (principal)
CPT/HCPCS: 36415; 74176-TC; 76705-TC; 81003; 83690; 85610; 85730; 87086; 99285-25

== ENCOUNTER 2023-05-03 20:47 | Observation (INO) | payer OTHER ==
[2023-05-03 22:10] LABS: BASO % 0.6 % (0-2.0); EOS % 0.7 % (0-4.5); HEMATOCRIT 37.9 % (32.4-45.2); LYMPH % 7.7 % (8-40); MCH 27.2 pg (25.7-33.7); MCHC 31.7 g/dl (32.0-36.0); MEAN CELL VOLUME 85.7 fl (80-96); MONO % 3.2 % (3.8-10.2); NEUT % 87.8 % (42.8-82.8); PLATELET COUNT 209 10^3/uL (134-434); RBC 4.42 M/mm3 (3.60-5.2); RDW 16.8 % (11.6-15.6); WHITE BLOOD COUNT 9.8 K/mm3 (4.0-10.0)
[2023-05-03 22:29] LABS: POTASSIUM 4.3 mmol/L (3.5-5.1)
[2023-05-03 22:31] LABS: CALCIUM 9.2 mg/dL (8.5-10.1)
[2023-05-03 22:32] LABS: ALBUMIN 3.7 g/dl (3.4-5.0); BLOOD UREA NITROGEN 28.8 mg/dL (7-18); MAGNESIUM 2.1 mg/dL (1.8-2.4)
[2023-05-03 22:35] LABS: CREATININE 1.2 mg/dL (0.55-1.3)
[2023-05-03 22:36] LABS: BILIRUBIN,TOTAL 0.3 mg/dL (0.2-1); TOT PROT 7.4 g/dl (6.4-8.2)
[2023-05-04] MEDS ORDERED: ATORVASTATIN CA 40 MG TABLET (FP) PO ONE (01:34)
[2023-05-04] MEDS ORDERED: ASPIRIN 81 MG CHEWABLE TABLETS PO ONE (01:35)
[2023-05-04] MEDS ORDERED: GABAPENTIN 300 MG CAPSULE PO ONE (01:36)
[2023-05-04] MEDS ORDERED: METOPROLOL TARTRATE 50 MG TABLET (FP) PO ONE (01:36)
[2023-05-04] MEDS ORDERED: metFORMIN HCL 500 MG TABLET (FP) PO ONE (01:37)
[2023-05-04] MEDS ORDERED: sitaGLIPtin PHOSPHATE 50 MG TABLET PO ONE (01:37)
[2023-05-04] MEDS ORDERED: metFORMIN HCL 500 MG TABLET (FP) ONE (02:10)
[2023-05-04] MEDS ORDERED: ASPIRIN 81 MG CHEWABLE TABLETS ONE (02:10)
[2023-05-04] MEDS ORDERED: GABAPENTIN 300 MG CAPSULE ONE (02:11)
[2023-05-04] MEDS ORDERED: sitaGLIPtin PHOSPHATE 50 MG TABLET ONE (02:13)
[2023-05-04] MEDS ORDERED: ATORVASTATIN CA 40 MG TABLET (FP) ONE (02:18)
[2023-05-04] MEDS ORDERED: ACETAMINOPHEN 325 MG TABLET (FP) PO PRN (02:23)
[2023-05-04] MEDS ORDERED: DOCUSATE SODIUM 100 MG CAPSULE (FP) PO PRN (02:23)
[2023-05-04] MEDS: INSULIN SLIDING SCALE (NOVOLOG) 1 VIAL SQ SCH ×4 (06:50→22:55)
[2023-05-04 07:19] LABS: BASO % 0.9 % (0-2.0); EOS % 3.4 % (0-4.5); HEMATOCRIT 34.3 % (32.4-45.2); HEMOGLOBIN 10.8 GM/dL (10.7-15.3); LYMPH % 20.5 % (8-40); MCH 27.6 pg (25.7-33.7); MCHC 31.5 g/dl (32.0-36.0); MEAN CELL VOLUME 87.5 fl (80-96); MEAN PLT VOLUME 9.2 fl (7.5-11.1); MONO % 8.1 % (3.8-10.2); NEUT % 67.1 % (42.8-82.8); PLATELET COUNT 181 10^3/uL (134-434); RBC 3.92 M/mm3 (3.60-5.2); RDW 16.6 % (11.6-15.6); WHITE BLOOD COUNT 9.2 K/mm3 (4.0-10.0)
[2023-05-04 07:36] LABS: INR 1.86 (0.83-1.09); PROTHROMBIN TIME (PATIENT) 21.5 SEC (9.7-13.0)
[2023-05-04 07:39] LABS: ACTIVATED PTT 32.7 SECONDS (25.2-36.5)
[2023-05-04 08:26] LABS: BLOOD UREA NITROGEN 26.9 mg/dL (7-18); CALCIUM 8.7 mg/dL (8.5-10.1); PHOSPHOROUS 3.1 mg/dL (2.5-4.9); POTASSIUM 3.6 mmol/L (3.5-5.1)
[2023-05-04] MEDS: GABAPENTIN 300 MG CAPSULE PO SCH ×2 (11:30→22:39)
[2023-05-04] MEDS: METOPROLOL TARTRATE 50 MG TABLET (FP) PO SCH ×2 (11:30→22:39)
[2023-05-04] MEDS: LOSARTAN POTASSIUM 50 MG TABLET PO SCH (11:30)
[2023-05-04] MEDS: amLODIPine BESYLATE 5 MG TABLET (FP) PO SCH (11:30)
[2023-05-04] MEDS ORDERED: INSULIN (NOVOLOG) ASPART 100 UNITS/ML 10ML VIAL ONE ×3 (11:36→17:12)
[2023-05-04 12:02] VITALS: BMI 31.1
[2023-05-04] MEDS: MECLIZINE HCL 12.5 MG TABLET PO SCH ×2 (14:32→22:41)
[2023-05-04] MEDS ORDERED: diphenhydrAMINE HCL 25 MG CAPSULE (FP) PO ONE (21:39)
[2023-05-04] MEDS: MIRTAZAPINE 15 MG TABLET (FP) PO SCH (22:39)
[2023-05-04] MEDS: ATORVASTATIN CA 40 MG TABLET (FP) PO SCH (22:42)
[2023-05-04] MEDS: LATANOPROST 0.005% OPHTH SOLN 2.5ML BOTTLE OU SCH (22:43)
[2023-05-04] MEDS: SOLIFENACIN SUCCINATE 5 MG TAB PO SCH (22:43)
[2023-05-05] MEDS ORDERED: INSULIN (NOVOLOG) ASPART 100 UNITS/ML 10ML VIAL ONE (06:05)
[2023-05-05] MEDS: MECLIZINE HCL 12.5 MG TABLET PO SCH ×3 (06:25→22:18)
[2023-05-05] MEDS: INSULIN SLIDING SCALE (NOVOLOG) 1 VIAL SQ SCH ×4 (06:25→22:18)
[2023-05-05] MEDS: GABAPENTIN 300 MG CAPSULE PO SCH ×2 (09:56→22:18)
[2023-05-05] MEDS: METOPROLOL TARTRATE 50 MG TABLET (FP) PO SCH ×2 (09:56→22:18)
[2023-05-05] MEDS: PANTOPRAZOLE 40 MG TABLET PO SCH (09:56)
[2023-05-05] MEDS: amLODIPine BESYLATE 5 MG TABLET (FP) PO SCH (09:56)
[2023-05-05] MEDS: LOSARTAN POTASSIUM 50 MG TABLET PO SCH (09:56)
[2023-05-05] MEDS: MIRTAZAPINE 15 MG TABLET (FP) PO SCH (22:17)
[2023-05-05] MEDS: ATORVASTATIN CA 40 MG TABLET (FP) PO SCH (22:18)
[2023-05-05] MEDS: LATANOPROST 0.005% OPHTH SOLN 2.5ML BOTTLE OU SCH (22:21)
[2023-05-05] MEDS: SOLIFENACIN SUCCINATE 5 MG TAB PO SCH (22:39)
[2023-05-06] MEDS: MECLIZINE HCL 12.5 MG TABLET PO SCH ×2 (06:31→14:21)
[2023-05-06] MEDS: INSULIN SLIDING SCALE (NOVOLOG) 1 VIAL SQ SCH ×2 (06:32→12:07)
[2023-05-06] MEDS ORDERED: RIVAROXABAN 20 MG TABLET PO SCH (09:12)
[2023-05-06] MEDS: LOSARTAN POTASSIUM 50 MG TABLET PO SCH (09:49)
[2023-05-06] MEDS: METOPROLOL TARTRATE 50 MG TABLET (FP) PO SCH (09:49)
[2023-05-06] MEDS: GABAPENTIN 300 MG CAPSULE PO SCH (09:49)
[2023-05-06] MEDS: PANTOPRAZOLE 40 MG TABLET PO SCH (09:50)
[2023-05-06] MEDS: amLODIPine BESYLATE 5 MG TABLET (FP) PO SCH (09:50)
[2023-05-06 11:19] VITALS: BP 132/58; PULSE 62; RESP 24; TEMP 98.1
[2023-05-06] MEDS ORDERED: INSULIN (NOVOLOG) ASPART 100 UNITS/ML 10ML VIAL ONE (11:54)
== END 2023-05-06 15:33 | disposition home or self-care (01) ==
LOC: JER 20:47 → JERBED 05-04 02:24 → J4W 05-04 05:45
PROVIDERS: ADMIT Internal Medicine; ATTEND Internal Medicine
PROC: 3E013VG Introduction of Insulin into Subcutaneous Tissue, Percutaneous Approach (ICD-10-PCS; principal; 2023-05-04)
DX: R42 Dizziness and giddiness (principal); K21.9 Gastro-esophageal reflux disease without esophagitis; I20.9 Angina pectoris, unspecified; I10 Essential (primary) hypertension; E78.5 Hyperlipidemia, unspecified; E11.42 Type 2 diabetes mellitus with diabetic polyneuropathy; I67.1 Cerebral aneurysm, nonruptured; Z88.0 Allergy status to penicillin
CPT/HCPCS: 36415; 70496-TC; 70498-TC; 71045-TC-FY; 80048; 80053; 82962; 83735; 84100; 84484; 85025; 85610; 85730; 93005; 93010; 96372; 97116-GP; 97162-GP; 99285-25; G0378

== ENCOUNTER 2023-08-17 20:42 | Inpatient (IN) | payer OTHER ==
[2023-08-17] MEDS ORDERED: ACETAMINOPHEN 1000 MG/100 ML BAG IVPB ONE ×2 (21:26→21:27)
[2023-08-17] MEDS ORDERED: ACETAMINOPHEN INJECTION 100 ML IVPB ONE (21:34)
[2023-08-17 22:16] LABS: BASO % 1.3 % (0-2.0); EOS % 4.2 % (0-4.5); HEMATOCRIT 35.2 % (32.4-45.2); HEMOGLOBIN 11.4 GM/dL (10.7-15.3); LYMPH % 17.8 % (8-40); MCHC 32.2 g/dl (32.0-36.0); MEAN CELL VOLUME 83.8 fl (80-96); MONO % 6.6 % (3.8-10.2); NEUT % 70.1 % (42.8-82.8); PLATELET COUNT 260 10^3/uL (134-434); RDW 16.1 % (11.6-15.6); WHITE BLOOD COUNT 13.7 K/mm3 (4.0-10.0)
[2023-08-17 22:21] LABS: URINE APPEARANCE Clear; URINE BILIRUBIN Negative (NEGATIVE); URINE COLOR Yellow; URINE GLUCOSE (UA) Negative (NEGATIVE); URINE KETONE Negative (NEGATIVE); URINE LEUK ESTERASE 2+ (NEGATIVE); URINE NITRITE Negative (NEGATIVE); URINE PROTEIN Negative (NEGATIVE); URINE UROBILINOGEN 0.2 mg/dL (0.2-1.0)
[2023-08-17 22:23] LABS: INR 1.58 (0.83-1.09); PROTHROMBIN TIME (PATIENT) 18.2 SEC (9.7-13.0)
[2023-08-17 22:26] LABS: ACTIVATED PTT 33.4 SECONDS (25.2-36.5)
[2023-08-17 22:30] LABS: EPI CELLS 47.7 /uL (0-25.1); HYALINE CASTS 0.29 /uL (0-3.1); URINE RBC 51.8 /uL (0-23.9); URINE WBC 3237.2 /uL (0-25.8)
[2023-08-17 22:31] LABS: URINE BACTERIA 226.7 /uL (0-1359)
[2023-08-17 22:36] LABS: POTASSIUM 4.4 mmol/L (3.5-5.1)
[2023-08-17 22:38] LABS: CALCIUM 8.7 mg/dL (8.5-10.1)
[2023-08-17 22:39] LABS: ALBUMIN 3.5 g/dl (3.4-5.0); BLOOD UREA NITROGEN 23.7 mg/dL (7-18)
[2023-08-17 22:42] LABS: CREATININE 1.1 mg/dL (0.55-1.3)
[2023-08-17 22:43] LABS: BILIRUBIN,TOTAL 0.3 mg/dL (0.2-1); TOT PROT 7.6 g/dl (6.4-8.2)
[2023-08-18] MEDS ORDERED: VITAMINS A AND D TOPICAL OINTMENT 60 GM TUBE TP PRN (02:55)
[2023-08-18 04:30] VITALS: BMI 29.2
[2023-08-18] MEDS: EMPAGLIFLOZIN (JARDIANCE) 10 MG TABLET PO SCH (06:58)
[2023-08-18] MEDS: GABAPENTIN 300 MG CAPSULE PO SCH ×3 (06:58→21:48)
[2023-08-18] MEDS: LOSARTAN POTASSIUM 50 MG TABLET PO SCH (09:06)
[2023-08-18] MEDS: ASPIRIN 81 MG CHEWABLE TABLETS PO SCH (09:06)
[2023-08-18] MEDS: amLODIPine BESYLATE 5 MG TABLET (FP) PO SCH (09:06)
[2023-08-18 09:40] LABS: BASO % 1.2 % (0-2.0); HEMATOCRIT 33.6 % (32.4-45.2); HEMOGLOBIN 10.8 GM/dL (10.7-15.3); LYMPH % 19.4 % (8-40); MCH 27.5 pg (25.7-33.7); MCHC 32.1 g/dl (32.0-36.0); MEAN CELL VOLUME 85.6 fl (80-96); MONO % 7.7 % (3.8-10.2); NEUT % 65.7 % (42.8-82.8); PLATELET COUNT 218 10^3/uL (134-434); RBC 3.93 M/mm3 (3.60-5.2); RDW 15.5 % (11.6-15.6); WHITE BLOOD COUNT 9.1 K/mm3 (4.0-10.0)
[2023-08-18 09:58] LABS: POTASSIUM 3.9 mmol/L (3.5-5.1)
[2023-08-18 10:01] LABS: CALCIUM 8.5 mg/dL (8.5-10.1)
[2023-08-18 10:02] LABS: BLOOD UREA NITROGEN 23.4 mg/dL (7-18)
[2023-08-18] MEDS: SOLIFENACIN SUCCINATE 5 MG TAB PO SCH (11:33)
[2023-08-18] MEDS ORDERED: PHENAZOPYRIDINE HCL 100 MG TABLET (FP) PO ONE (12:45)
[2023-08-18] MEDS ORDERED: RIVAROXABAN 20 MG TABLET PO SCH (18:00)
[2023-08-18] MEDS ORDERED: MELATONIN 5 MG TABLETS PO SCH (22:00)
[2023-08-18] MEDS ORDERED: ATORVASTATIN CA 40 MG TABLET (FP) PO SCH (22:00)
[2023-08-18] MEDS ORDERED: LATANOPROST 0.005% OPHTH SOLN 2.5ML BOTTLE OU SCH (22:00)
[2023-08-19 05:09] VITALS: RESP 18
[2023-08-19] MEDS: GABAPENTIN 300 MG CAPSULE PO SCH ×2 (06:05→13:28)
[2023-08-19] MEDS: EMPAGLIFLOZIN (JARDIANCE) 10 MG TABLET PO SCH (06:45)
[2023-08-19] MEDS: LOSARTAN POTASSIUM 50 MG TABLET PO SCH (09:11)
[2023-08-19] MEDS: SOLIFENACIN SUCCINATE 5 MG TAB PO SCH (09:11)
[2023-08-19] MEDS: ASPIRIN 81 MG CHEWABLE TABLETS PO SCH (09:11)
[2023-08-19] MEDS: amLODIPine BESYLATE 5 MG TABLET (FP) PO SCH (09:11)
[2023-08-19 12:32] VITALS: BP 120/65; PULSE 69; TEMP 97.9
== END 2023-08-19 14:15 | disposition home or self-care (01) | DRG 690 ==
LOC: JER 20:42 → JERBED 08-18 00:04 → J6S 08-18 01:58
PROVIDERS: ADMIT Internal Medicine; ATTEND Internal Medicine
DX: N39.0 Urinary tract infection, site not specified (principal); I10 Essential (primary) hypertension; E78.5 Hyperlipidemia, unspecified; K21.9 Gastro-esophageal reflux disease without esophagitis; E11.9 Type 2 diabetes mellitus without complications; M54.9 Dorsalgia, unspecified; I25.10 Atherosclerotic heart disease of native coronary artery without angina pectoris; Z86.718 Personal history of other venous thrombosis and embolism; Z88.0 Allergy status to penicillin
CPT/HCPCS: 36415; 80048; 80053; 81003; 82962; 83605; 85025; 85610; 85730; 86850; 86900; 86901; 87086; 93005; 93010; 99285-25

== ENCOUNTER 2024-09-16 03:28 | Emergency (ER) | payer OTHER ==
[2024-09-16 03:37] VITALS: BP 124/94; PULSE 78; RESP 18; TEMP 99.1; BMI 25.9
[2024-09-16] MEDS ORDERED: LIDOCAINE 4% PATCH TP ONE (04:17)
[2024-09-16] MEDS: LIDOCAINE 4% PATCH TP ONE (04:28)
[2024-09-16 04:52] LABS: EPI CELLS 4 /uL (0-25.1); HYALINE CASTS 71 /uL (0-3.1); PH,URINE 7.5 (5.0-8.0); URINE APPEARANCE TURBID; URINE BILIRUBIN 2+ (NEGATIVE); URINE COLOR RED; URINE GLUCOSE (UA) 3+ (NEGATIVE); URINE KETONE NEGATIVE (NEGATIVE); URINE LEUK ESTERASE 2+ (NEGATIVE); URINE NITRITE POSITIVE (NEGATIVE); URINE PROTEIN 2+ (NEGATIVE); URINE RBC 25819 /uL (0-23.9); URINE UROBILINOGEN 0.2 mg/dL (0.2-1.0); URINE WBC 69 /uL (0-25.8)
[2024-09-16 09:59] LABS: URINE BACTERIA 0 /uL (0-1359)
[2024-09-16] MEDS ORDERED: LIDOCAINE PATCH REMOVAL MC SCH (22:00)
== END 2024-09-16 05:45 | disposition home or self-care (01) ==
LOC: JER 03:28
DX: M54.9 Dorsalgia, unspecified (principal); G89.29 Other chronic pain; N39.0 Urinary tract infection, site not specified; R31.9 Hematuria, unspecified
CPT/HCPCS: 81003; 87077; 87086; 99283-25

== ENCOUNTER 2024-09-25 14:36 | Emergency (ER) | payer OTHER ==
[2024-09-25 15:15] VITALS: RESP 16; BMI 25.2
[2024-09-25 17:20] VITALS: BP 120/61; PULSE 72; TEMP 98.2
== END 2024-09-25 20:05 | disposition home or self-care (01) ==
LOC: JER 14:36
DX: M79.605 Pain in left leg (principal); I83.93 Asymptomatic varicose veins of bilateral lower extremities
CPT/HCPCS: 82962; 93971-TC; 99284-25